=== PATIENT | female | born 1975 | race Caucasian/White ===

== ENCOUNTER 2018-07-19 11:43 | Inpatient (IN) | payer OTHER ==
[~2018-07-19] VITALS: Ht 170.2 cm; Wt 57.2 kg
[2018-07-19 11:47] VITALS: BP 106/74
[2018-07-19] MEDS ORDERED: ZOLOFT50 MG PO (11:58)
[2018-07-19] MEDS ORDERED: ABILIFY10 MG PO (11:58)
[2018-07-19 12:53] VITALS: BP 95/51
[2018-07-19 12:55] LABS: BASO % 0.2 % (0.0-1.0); EOS % 0.5 % (1.0-4.0); HEMATOCRIT 35.1 % (37.0-47.0); HEMOGLOBIN 11.3 g/dl (12.0-16.0); LYMPH # 1.6 10*3/uL (1.3-4.4); LYMPH % 28.2 % (27.0-41.0); MEAN CELL VOLUME 85.6 fl (81.0-99.0); MEAN CORPUSCULAR HGB 27.6 pg (27.0-31.0); MEAN CORPUSCULAR HGB CONC 32.2 g/dl (33.0-37.0); MONO # 0.3 10*3/uL (0.1-1.0); NEUT # 3.7 10*3/uL (2.3-7.9); NEUT % 65.9 % (47.0-73.0); PLATELET COUNT AUTOMATED 194 10*3/uL (130-400); RED CELL DISTRI WIDTH 16.4 % (0-14.5); WHITE BLOOD COUNT 5.6 10*3/uL (4.8-10.8)
[2018-07-19 13:13] LABS: ALBUMIN 3.1 gm/dl (3.1-4.5); ALKALINE PHOSPHATASE 112 U/L (45-117); BUN 14 mg/dl (7-24); CHLORIDE 109 mmol/L (98-107); CREATININE 0.52 mg/dL (0.55-1.02); LIPASE 124 U/L (73-393); POTASSIUM 4.6 mmol/L (3.5-5.1); SGOT/AST 33 IU/L (3-35); SGPT/ALT 35 U/L (12-78); SODIUM 140 mmol/L (136-145); TOTAL PROTEIN 6.9 gm/dL (6.4-8.2)
[2018-07-19] MEDS ORDERED: SUBOXONE 4 MG-1 EACH SL (16:28)
[2018-07-19 20:00] VITALS: BP 91/59
[2018-07-20] VITALS: BP 90/50
[2018-07-20 08:00] VITALS: BP 124/68; BP 90/55
== END 2018-07-20 11:07 | disposition home or self-care (01) | DRG 379 ==
LOC: ED 11:43 → 5E 15:13 → EDHOLD 15:13 → 4E 15:19 → 5E 15:24
PROVIDERS: Emergency Medicine
DX: K92.2 Gastrointestinal hemorrhage, unspecified (principal); Z71.6 Tobacco abuse counseling; F11.10 Opioid abuse, uncomplicated; F41.9 Anxiety disorder, unspecified; F32.9 Major depressive disorder, single episode, unspecified; F12.90 Cannabis use, unspecified, uncomplicated; Z88.8 Allergy status to other drugs, medicaments and biological substances; Z72.0 Tobacco use; Z79.899 Other long term (current) drug therapy; Z90.710 Acquired absence of both cervix and uterus; Z83.3 Family history of diabetes mellitus